=== PATIENT | male | born 1970 | race American Indian/Alaskan Native ===

== ENCOUNTER 2019-12-26 15:49 | Emergency (ER) | payer SELFPAY ==
[~2019-12-26] VITALS: Ht 185.4 cm; Wt 90.9 kg
[2019-12-26] MEDS ORDERED: IBUP200C25 PO (16:02)
[2019-12-26] MEDS ORDERED: KETOROLAC 30 MG/ML 1ML VIAL IV ONE (16:30)
[2019-12-26 16:52] LABS: BASO % 0.2 % (0.0-1.0); EOS % 0.5 % (0.0-3.0); HEMATOCRIT 40.8 % (42.0-52.0); HEMOGLOBIN 13.9 g/dl (13.5-17.5); LYMPH # 3.3 10^3/uL (1.5-5.0); LYMPH % 37.5 % (24.0-44.0); MEAN CORPUSCULAR HEMOGLOBIN 32.3 pg (27.0-33.0); MEAN CORPUSCULAR HGB CONC 34.1 g/dl (32.0-36.5); MEAN CORPUSCULAR VOLUME 94.7 fl (80.0-96.0); MONO # 0.5 10^3/uL (0.0-0.8); MONO % 5.9 % (0.0-5.0); NEUTROPHILS # 4.9 10^3/uL (1.5-8.5); NEUTROPHILS % 55.7 % (36.0-66.0); PLATELET COUNT, AUTOMATED 318 10^3/uL (150-450); RED BLOOD COUNT 4.31 10^6/uL (4.30-6.10); WHITE BLOOD COUNT 8.7 10^3/uL (4.0-10.0)
[2019-12-26] MEDS ORDERED: KETO10TAB PO (18:09)
[2019-12-26 18:19] VITALS: BP 134/75
[2019-12-26 19:22] LABS: CHLAMYDIA DNA AMPLIFICATION NEGATIVE (NEGATIVE); GC DNA AMPLIFICATION NEGATIVE (NEGATIVE)
--- NOTE | 2019-12-27 00:10 | REP ---
CT ABDOMEN AND PELVIS WITHOUT ORAL OR IV CONTRAST: CT abdomen and pelvis performed without oral or IV contrast. Sagittal and coronal reconstruction images are performed. Visualized lung bases demonstrate no infiltrate. The liver, gallbladder, spleen, adrenals, pancreas, and kidneys are grossly unremarkable. No renal, ureteral, or bladder calculus is seen, and there is no hydroureteronephrosis. There is mild atherosclerotic calcification of the abdominal aorta without aneurysm. I see no adenopathy. There is no free air or free fluid. There is no bowel wall thickening. The appendix is normal. No pelvic mass is seen. The urinary bladder is not well distended and not well evaluated. IMPRESSION: No CT evidence of renal, ureteral, or bladder calculus. No hydroureteronephrosis. Appendix is normal. No free air, free fluid, or bowel obstruction. Electronically Signed by Adalberto Waite MD 12/27/2019 01:28 P
== END 2019-12-26 18:23 | disposition home or self-care (01) ==
LOC: M ED 15:49
DX: R10.31 Right lower quadrant pain (principal)
CPT/HCPCS: 74176; 80047; 81001; 85025; 87661; 96374; 99284; J1885

== ENCOUNTER 2020-03-10 22:44 | Emergency (ER) | payer SELFPAY ==
[~2020-03-10] VITALS: Ht 188 cm; Wt 100.0 kg
[~2020-03-10 22:44] MED LIST: IBUP200C25 PO; KETO10TAB PO
[2020-03-11] MEDS ORDERED: NS 1,000 ML IV ONE (00:30)
[2020-03-11 00:33] LABS: BASO # 0.1 10^3/uL (0.0-0.2); BASO % 0.3 % (0.0-1.0); EOS # 0.2 10^3/uL (0.0-0.5); EOS % 0.8 % (0.0-3.0); HEMATOCRIT 44.7 % (42.0-52.0); HEMOGLOBIN 15.6 g/dl (13.5-17.5); LYMPH # 5.5 10^3/uL (1.5-5.0); LYMPH % 28.7 % (24.0-44.0); MEAN CORPUSCULAR HEMOGLOBIN 33.8 pg (27.0-33.0); MEAN CORPUSCULAR HGB CONC 34.9 g/dl (32.0-36.5); MONO # 0.9 10^3/uL (0.0-0.8); MONO % 4.6 % (0.0-5.0); NEUTROPHILS # 12.4 10^3/uL (1.5-8.5); NEUTROPHILS % 65.3 % (36.0-66.0); PLATELET COUNT, AUTOMATED 391 10^3/uL (150-450); RED BLOOD COUNT 4.61 10^6/uL (4.30-6.10)
--- NOTE | 2020-03-11 00:47 | REPVR ---
PROCEDURE INFORMATION: Exam: CT Abdomen And Pelvis Without Contrast Exam date and time: 03/11/2020 12:22 AM Age: 49 years old Clinical indication: Abdominal pain; Localized; Left upper quadrant (luq); Additional info: Luq abd pain TECHNIQUE: Imaging protocol: Computed tomography of the abdomen and pelvis without contrast. Radiation optimization: All CT scans at this facility use at least one of these dose optimization techniques: automated exposure control; mA and/or kV adjustment per patient size (includes targeted exams where dose is matched to clinical indication); or iterative reconstruction. COMPARISON: CT ABD PELVIS W/O CONTRAST 12/26/2019 4:23 PM FINDINGS: Liver: Normal. No mass. Gallbladder and bile ducts: Normal. No calcified stones. No ductal dilation. Pancreas: Normal. No ductal dilation. Spleen: Normal. No splenomegaly. Adrenals: Normal. No mass. Kidneys and ureters: Normal. No hydronephrosis. Stomach and bowel: Moderate stool in the colon. No abnormal bowel dilatation. Diffuse mild thickening of the colon. Negative for colonic diverticulitis. Appendix: Appendix is normal. Intraperitoneal space: Unremarkable. No free air. No significant fluid collection. Vasculature: Moderate calcified atherosclerotic disease. Multiple phleboliths in the pelvis. No aortic aneurysm. Lymph nodes: Unremarkable. No enlarged lymph nodes. Bladder: Unremarkable as visualized. Reproductive: Prostate is normal in size. Bones/joints: Moderate degenerative spine. No acute fracture. Soft tissues: Unremarkable. IMPRESSION: 1. Diffuse mild thickening of the colon. Suspicious for infectious or inflammatory colitis. 2. Additional findings as described. Electronically signed by: Buddy Falcon On 03/11/2020 00:47:28 AM
[2020-03-11 01:00] LABS: ALBUMIN 4.5 GM/DL (3.2-5.2); ALT/SGPT 19 U/L (12-78); BILIRUBIN,DIRECT < 0.1 MG/DL (0.0-0.2); BILIRUBIN,TOTAL 0.2 MG/DL (0.2-1.0); BLOOD UREA NITROGEN 8 MG/DL (7-18); CALCIUM LEVEL 8.8 MG/DL (8.5-10.1); CARBON DIOXIDE LEVEL 22 MEQ/L (21-32); CHLORIDE LEVEL 114 MEQ/L (98-107); CK-MB VALUE MASS 4.7 NG/ML (<3.6); CPK CREATINE PHOSPHOKINASE 180 U/L (39-308); CREATININE FOR GFR 0.97 MG/DL (0.70-1.30); GLOMERULAR FILTRATION RATE > 60.0 (>60); GLUCOSE, FASTING 93 MG/DL (70-100); LIPASE 111 U/L (73-393); MB/CK RELATIVE INDEX 2.61 (< OR =4); SODIUM LEVEL 146 MEQ/L (136-145); TROPONIN I < 0.02 NG/ML (< 0.10)
[2020-03-11] MEDS ORDERED: CIPROFLOXACIN 500MG TABLET PO ONE (01:15)
[2020-03-11] MEDS ORDERED: metroNIDAZOLE (FLAGYL) 500MG TABLET PO ONE (01:15)
[2020-03-11] MEDS ORDERED: FLAG500T PO (01:46)
[2020-03-11] MEDS ORDERED: ZOFR4TAB16 PO (01:46)
[2020-03-11] MEDS ORDERED: CIPR-249 PO (01:46)
[2020-03-11 02:15] VITALS: BP 127/79
--- NOTE | 2020-03-31 14:42 | ECGEPIP ---
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
--- NOTE | 2020-04-10 10:44 | REP ---
CHEST X-RAY CLINICAL: Shortness of breath. TECHNIQUE: PA and lateral. FINDINGS: Mediastinum and cardiac silhouette normal. Lung loredo are relatively clear. Linear fibroatelectic changes at the base are noted. No consolidation, effusions, or pneumothorax. Skeletal structures intact. IMPRESSION: Relatively normal examination as above. No focal consolidation or effusion. MTDD
== END 2020-03-11 02:20 | disposition home or self-care (01) ==
LOC: M ED 22:44
DX: R13.10 Dysphagia, unspecified (principal); R11.10 Vomiting, unspecified; K52.9 Noninfective gastroenteritis and colitis, unspecified; F17.200 Nicotine dependence, unspecified, uncomplicated

== ENCOUNTER 2020-06-27 15:53 | Emergency (ER) | payer SELFPAY ==
[~2020-06-27] VITALS: Ht 185.4 cm; Wt 90.3 kg
[2020-06-27 15:53] VITALS: BP 128/68
[~2020-06-27 15:53] MED LIST changes: +CIPR-249 PO; +FLAG500T PO; +ZOFR4TAB16 PO
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
--- NOTE | 2020-06-30 19:44 | ED PDOC ---
Post-Departure Follow-Up dr hernandez faxed formal report of soft tissue neck for fu Len Christianson MD Jun 30, 2020 19:44
== END 2020-06-27 17:21 | disposition home or self-care (01) ==
LOC: M ED 15:53
DX: S11.94XA Puncture wound with foreign body of unspecified part of neck, initial encounter (principal); X95.01XA Assault by airgun discharge, initial encounter; Y92.89 Other specified places as the place of occurrence of the external cause; Y93.89 Activity, other specified; Y99.8 Other external cause status; J02.9 Acute pharyngitis, unspecified; R42 Dizziness and giddiness; R06.02 Shortness of breath; F17.200 Nicotine dependence, unspecified, uncomplicated

== ENCOUNTER 2020-12-28 02:06 | Emergency (ER) | payer MEDICAID, SELFPAY ==
[~2020-12-28] VITALS: Ht 185.4 cm; Wt 100.0 kg
[2020-12-28] MEDS ORDERED: LORazepam 2 MG/ML VIAL IM STA (02:35)
[2020-12-28] MEDS ORDERED: diphenhydrAMINE 50MG/ML VIAL (J1200) IM STA (02:35)
[2020-12-28] MEDS ORDERED: HALOPERIDOL 5MG/ML VIAL (J1630 PER 1) IM STA (02:36)
[2020-12-28 02:41] LABS: HEMOGLOBIN 14.4 g/dl (13.5-17.5); MEAN CORPUSCULAR HEMOGLOBIN 32.7 pg (27.0-33.0); PLATELET COUNT, AUTOMATED 411 10^3/uL (150-450); RED BLOOD COUNT 4.41 10^6/uL (4.30-6.10); WHITE BLOOD COUNT 20.9 10^3/uL (4.0-10.0)
[2020-12-28 03:02] LABS: AMPHETAMINES LEVEL URINE NEGATIVE (NEGATIVE); BARBITURATES URINE NEGATIVE (NEGATIVE); BENZODIAZEPINES URINE NEGATIVE (NEGATIVE); CANNABINOIDS URINE POSITIVE (NEGATIVE); COCAINE METABOLITE URINE NEGATIVE (NEGATIVE); METHADONE URINE NEGATIVE (NEGATIVE); OPIATES URINE NEGATIVE (NEGATIVE); PHENCYCLIDINE URINE NEGATIVE (NEGATIVE)
[2020-12-28 03:09] LABS: ACETAMINOPHEN LEVEL < 2.0 UG/ML (10.0-30.0); ALBUMIN 4.6 GM/DL (3.2-5.2); ALT/SGPT 24 U/L (12-78); BILIRUBIN,DIRECT 0.1 MG/DL (0.0-0.2); BILIRUBIN,TOTAL 0.3 MG/DL (0.2-1.0); BLOOD UREA NITROGEN 11 MG/DL (7-18); CALCIUM LEVEL 9.1 MG/DL (8.5-10.1); CARBON DIOXIDE LEVEL 18 MEQ/L (21-32); CHLORIDE LEVEL 109 MEQ/L (98-107); CREATININE FOR GFR 1.15 MG/DL (0.70-1.30); ETHYL ALCOHOL (ETHANOL) 0.126 % (0.000-0.010); GLOMERULAR FILTRATION RATE > 60.0 (>56); GLUCOSE, FASTING 135 MG/DL (70-100); POTASSIUM SERUM 3.6 MEQ/L (3.5-5.1); SALICYLATE LEVEL 6.3 MG/DL (5.0-30.0); SODIUM LEVEL 146 MEQ/L (136-145); TOTAL PROTEIN 8.1 GM/DL (6.4-8.2)
[2020-12-28 04:35] VITALS: BP 125/60
--- NOTE | 2020-12-28 12:34 | REP ---
INDICATION: injury, pain. COMPARISON: None. TECHNIQUE: Three views of the left shoulder are presented. FINDINGS: Left glenohumeral and acromioclavicular joints are normally aligned. Periarticular soft tissues are unremarkable. No fracture or subluxation is seen. The visualized left hemithorax appears intact. There is an opaque BB superimposed on the 1st thoracic vertebral body. This was previously observed radiographically on June 27, 2020 soft tissue neck radiographs. It is apparently in the anterior soft tissues at the level of the upper trachea. IMPRESSION: Negative left shoulder radiographs. Opaque BB foreign body projecting over the T1 vertebral body. <Electronically signed by Sly Lopez > 12/28/20 2218
--- NOTE | 2020-12-28 12:35 | REP ---
INDICATION: injury, pain, including hand. COMPARISON: None. TECHNIQUE: Four views of the right wrist are provided. FINDINGS: Four views of the right wrist demonstrate overall normal mineralization. Joint spaces are preserved. No fracture or subluxation is seen. Alignment is normal. IMPRESSION: Negative radiographs of the right wrist. No fracture seen. <Electronically signed by Sly Lopez > 12/28/20 [id number]
[2020-12-28] MEDS ORDERED: THERTAB52 PO (20:30)
== END 2020-12-28 14:36 | disposition home or self-care (01) ==
LOC: M ED 02:06
DX: F10.229 Alcohol dependence with intoxication, unspecified (principal); Y90.0 Blood alcohol level of less than 20 mg/100 ml
CPT/HCPCS: 36415; 73030; 73110; 80048; 80076; 80143; 80307; 82077; 84443; 85027; 96372; 99285; J1200; J1630; J2060

== ENCOUNTER 2020-12-28 18:47 | Inpatient (IN) | payer MEDICAID, SELFPAY ==
[~2020-12-28] VITALS: Ht 185.4 cm; Wt 100.0 kg
[2020-12-28 19:21] LABS: HEMOGLOBIN 13.5 g/dl (13.5-17.5); MEAN CORPUSCULAR HEMOGLOBIN 32.7 pg (27.0-33.0); MEAN CORPUSCULAR HGB CONC 32.9 g/dl (32.0-36.5); MEAN CORPUSCULAR VOLUME 99.3 fl (80.0-96.0); PLATELET COUNT, AUTOMATED 358 10^3/uL (150-450); RED BLOOD COUNT 4.13 10^6/uL (4.30-6.10); WHITE BLOOD COUNT 17.2 10^3/uL (4.0-10.0)
[2020-12-28 19:44] LABS: AMPHETAMINES LEVEL URINE NEGATIVE (NEGATIVE); BARBITURATES URINE NEGATIVE (NEGATIVE); BENZODIAZEPINES URINE NEGATIVE (NEGATIVE); CANNABINOIDS URINE POSITIVE (NEGATIVE); COCAINE METABOLITE URINE NEGATIVE (NEGATIVE); METHADONE URINE NEGATIVE (NEGATIVE); OPIATES URINE NEGATIVE (NEGATIVE); PHENCYCLIDINE URINE NEGATIVE (NEGATIVE)
[2020-12-28 20:01] LABS: ACETAMINOPHEN LEVEL < 2.0 UG/ML (10.0-30.0); ALBUMIN 4.3 GM/DL (3.2-5.2); ALT/SGPT 31 U/L (12-78); BILIRUBIN,DIRECT 0.2 MG/DL (0.0-0.2); BILIRUBIN,TOTAL 0.7 MG/DL (0.2-1.0); BLOOD UREA NITROGEN 15 MG/DL (7-18); CALCIUM LEVEL 9.3 MG/DL (8.5-10.1); CARBON DIOXIDE LEVEL 24 MEQ/L (21-32); CHLORIDE LEVEL 111 MEQ/L (98-107); CREATININE FOR GFR 0.97 MG/DL (0.70-1.30); ETHYL ALCOHOL (ETHANOL) 0.013 % (0.000-0.010); GLOMERULAR FILTRATION RATE > 60.0 (>56); GLUCOSE, FASTING 102 MG/DL (70-100); POTASSIUM SERUM 4.2 MEQ/L (3.5-5.1); SALICYLATE LEVEL 4.7 MG/DL (5.0-30.0); SODIUM LEVEL 146 MEQ/L (136-145); TOTAL PROTEIN 7.5 GM/DL (6.4-8.2)
[2020-12-28] MEDS ORDERED: THERTAB52 PO (20:30)
[2020-12-29] MEDS ORDERED: LORazepam 2 MG TAB PO PRN (11:20)
[2020-12-29] MEDS ORDERED: MOM 30ML SUSPENSION UDC PO PRN (11:20)
[2020-12-29] MEDS ORDERED: MAALOX 30 ML SUSP *UDC PO PRN (11:20)
[2020-12-29] MEDS ORDERED: ACETAMINOPHEN TAB 650MG DOSE (2X325MG) PO PRN (11:20)
[2020-12-29 11:23] LABS: RSV AMPLIFICATION NEGATIVE (NEGATIVE)
[2020-12-29] MEDS ORDERED: IBUPROFEN 800 MG TAB PO ONE (11:35)
[2020-12-29 13:27] VITALS: BP 128/86
[2020-12-29 14:00] VITALS: BP 128/86
[2020-12-29] MEDS ORDERED: IBUPROFEN 600MG TAB PO PRN (14:55)
[2020-12-29] MEDS: MULTIVITAMINS/MINERALS THERAP 1 TAB PO SCH (15:22)
[2020-12-29] MEDS: THIAMINE 100 MG TAB PO SCH ×2 (15:22→20:22)
[2020-12-29] MEDS: FOLIC ACID 1 MG TAB PO SCH (15:22)
[2020-12-29] MEDS: traZODone 50 MG TAB PO PRN (20:22)
[2020-12-30 02:09] VITALS: BP 150/79
[2020-12-30] MEDS: IBUPROFEN 600MG TAB PO PRN ×2 (06:23→15:53)
[2020-12-30 06:36] VITALS: BP 142/77
[2020-12-30 06:37] VITALS: BP 142/77
[2020-12-30] MEDS: THIAMINE 100 MG TAB PO SCH ×2 (09:46→20:17)
[2020-12-30] MEDS: MULTIVITAMINS/MINERALS THERAP 1 TAB PO SCH (09:46)
[2020-12-30] MEDS: FOLIC ACID 1 MG TAB PO SCH (09:46)
[2020-12-30] MEDS: NICOTINE 21MG/24HR 1 EA TRANSDERMAL TD SCH (09:47)
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
[2020-12-30] MEDS ORDERED: ISOVUE-370 76% 100ML VIAL As Ordered ONE (15:06)
[2020-12-30 15:34] VITALS: BP 168/86
[2020-12-30] MEDS ORDERED: ACETAMINOPHEN TAB 650MG DOSE (2X325MG) PO PRN (16:30)
[2020-12-30 16:36] VITALS: BP 168/86
[2020-12-30] MEDS: MIRTAZAPINE 7.5MG PER 1/2 TABLET PO SCH (20:17)
[2020-12-30] MEDS: hydrOXYzine 50 MG TAB PO SCH (20:17)
--- NOTE | 2020-12-30 22:13 | HPEPDOC ---
[facility] Medical History & Physical Date of Admission Dec 29, 2020 Date of Service: Dec 30, 2020 History and Physical CHIEF COMPLAINT: Bilateral knee pain HISTORY OF PRESENT ILLNESS: Mr. Ospina is a 50 year old male in the inpatient mental health unit for suicide ideation. He tells me he recently hyperextended his knee. He was upset at the neighbors and was stomping and jumping on the ground. He landed wrong and hyperextended his knees bilaterally. He tells me at rest he has 6 out of 10 pain. Pain is worse with ambulation. He limps due to this pain. On passive range of motion of his legs, pain is worse on right than left. Attempted Amy's maneuver, but was unable to due to pain. Otherwise patient reports abdominal pain intermittently. Sometimes when he strains, he has pus coming out of his penis. He tells me that he's had abscess/fistula in his colon. Patient has not followed with the primary for several years. PAST MEDICAL HISTORY: Patient denies any past medical history PAST SURGICAL HISTORY: 1. Abdominal surgeries for abscess/fistula SOCIAL HISTORY: Tobacco use: Current smoker. Tells me he started when he was 9 years old. Smoked for 42 years, about 1-2 packs per day. ETOH: Occasionally Illicit drug use: Marijuana FAMILY HISTORY: Father: Heart problems Mother: History of unknown cancer, [place] ALLERGIES: Please see below. REVIEW OF SYSTEMS: CONSTITUTIONAL: Denies any fever. ENT: Reports sore throat from yelling. RESPIRATORY: Reports chronic shortness of breath. Reports chronic cough with yellow sputum. CARDIOVASCULAR: Denies chest pain. GASTROINTESTINAL: Reports intermittent abdominal pain. GENITOURINARY: Denies dysuria. CUTANEOUS: Denies rashes. MUSCULOSKELETAL: Reports bilateral knee pain. NEUROLOGICAL: Denies paresthesias. PSYCHOLOGICAL: Reports anxiety. Reports depression. HOME MEDICATIONS: Please see below. PHYSICAL EXAMINATION: VITAL SIGNS: Temperature 98.5, pulse 88, respiratory rate 18, blood pressure 168/86, pulse oximetry 95% on room air. GENERAL: Comfortable, in no apparent distress. HEENT: Head normocephalic/atraumatic, EOMI, sclera clear. NECK: Supple, no JVD. RESPIRATORY: Lungs clear to auscultation bilaterally, no rales, wheeze or rhonchi. CARDIOVASCULAR: Regular rate and rhythm. ABDOMEN: Soft, nontender, no guarding or rebound tenderness. Normal bowel sounds. MUSCLE SKELETAL: Bilateral knee pain with passive range of motion. Restriction in range of motion due to pain. NEUROLOGICAL: CN 312 grossly intact, no focal deficits noted. PSYCHOLOGICAL: Normal mood and affect LABORATORY DATA: See below. IMAGING: None MICROBIOLOGY: Please see below. ASSESSMENT and PLAN: 1. Bilateral knee pain Ordered CT of the knees bilaterally Acetaminophen and ibuprofen for pain May ice knees Recommend rest 2. Abdominal pain Patient tells me has a history of fistulas and abscesses We'll order a CT abdomen and pelvis contrast 3. Suicidal ideation Being managed in the inpatient mental health unit Vital Signs Vital Signs Date Time Temp Pulse Resp B/P (MAP) Pulse Ox O2 Delivery O2 Flow Rate FiO2 12/30/20 16:36 98.5 88 18 168/86 (113) 12/30/20 08:44 Room Air 12/30/20 06:36 95 Home Medications Scheduled Multivitamin,Therapeutic (Thera-Tabs) 1 Each Tablet, 1 TAB PO DAILY Allergies Coded Allergies: No Known Allergies (Unverified , 12/26/19) A-FIB/CHADSVASC A-FIB History Current/History of A-Fib/PAF?: No JACY JUAREZ DO Dec 30, 2020 22:13
[2020-12-31 00:15] VITALS: BP 162/75
[2020-12-31 06:20] VITALS: BP 158/78
--- NOTE | 2020-12-31 07:00 | REP ---
INDICATION: Abdominal pain, history of abscess/fistula, colovesicular?. COMPARISON: 03/11/2020 TECHNIQUE: Axial contrast-enhanced images from the lung bases to the pubic symphysis using 100 cc Isovue 370 intravenous contrast material. Coronal and sagittal reformations obtained. This CT examination was performed using the following dose reduction techniques: Automated exposure control, adjustment of mA and/or kv according to the patient's size, and the use of iterative reconstruction technique. FINDINGS: Liver, spleen, pancreas, gallbladder, bilateral adrenal glands and kidneys are normal. The enteric system including stomach, small, and large bowel appears normal. No evidence for obstruction or acute inflammatory process. Normal terminal ileum and appendix are identified in the right lower quadrant. Few scattered sigmoid diverticula without acute diverticulitis noted. Pelvis demonstrates normal bladder and age-appropriate prostate/seminal vesicles. No ascites. No free air. No intraperitoneal or retroperitoneal adenopathy. Abdominal aorta and vasculature appear normal. Musculoskeletal structures are intact and without acute osseous abnormality. IMPRESSION: No acute abdominopelvic pathology appreciated. <Electronically signed by Dharmesh Ley > 12/31/20 [id number]
[2020-12-31] MEDS: IBUPROFEN 600MG TAB PO PRN ×2 (07:11→18:14)
--- NOTE | 2020-12-31 07:17 | REP ---
INDICATION: Bilaterla knee pain. COMPARISON: None. TECHNIQUE: Axial contrast-enhanced images through the bilateral knees using 100 cc Isovue 370 intravenous contrast material (delayed from abdominopelvic CT). Coronal and sagittal reformations obtained. FINDINGS: Examination is relatively symmetric and essentially within normal limits. Age-related tricompartmental changes include subtle periarticular sclerosis with very minimal tibiofemoral and patellofemoral joint space narrowing. No osteophytosis or subchondral erosive changes/irregularities are noted. No effusion. Musculature and soft tissue supporting structures appear relatively symmetric and normal by CT evaluation. Surrounding subcutaneous fat is without edema or stranding. IMPRESSION: Minimal symmetric age-related changes. <Electronically signed by Dharmesh Ley > 12/31/20 [id number]
[2020-12-31 08:00] VITALS: BP 158/78
[2020-12-31] MEDS: hydrOXYzine 50 MG TAB PO SCH (08:15)
[2020-12-31] MEDS: NICOTINE 21MG/24HR 1 EA TRANSDERMAL TD SCH (08:15)
[2020-12-31] MEDS: MULTIVITAMINS/MINERALS THERAP 1 TAB PO SCH (08:15)
[2020-12-31] MEDS: THIAMINE 100 MG TAB PO SCH (08:15)
[2020-12-31] MEDS: FOLIC ACID 1 MG TAB PO SCH (08:16)
--- NOTE | 2020-12-31 14:12 | MHIPNPDOC ---
[facility] Progress Note Progress Note DATE OF SERVICE: 12/31/20 HISTORY: Patient is a 50 year old Single, Unemployed, Undomiciled, Male who reports that he had suicidal thinking after his nephew and him were arguing and his nephew threw him out of the house where he had been residing x 3 years. "I had problems with my neighbors. We got argument about change being off the door. They called the police and he was sitting in the ER for 12 hours and last to walking barefoot after he was discharged was not allowed to get things nowhere to go, no money, and I was thinking about jumping off a bridge". Patient reports a long history of legal problems, is sex offender , was in detention for 3 years. Reports that his stepdaughter accused him of sex offense, has been living off and on with family members for many years because he is unable to obtain a job due to his sexual offense status. "This is the fourth time everything has been taken away from me" PER ED REPORT: Pt was brought to the ED by [employer] on a 9.41 after pt. wandered into the [facility] [employer]. stating he was suicidal with plan to jump off a bridge or jump in front of a bus. Pt was recently discharged from ED a few hours ago and stated he lied to medical social worker in attempt to be discharged. Pt states, "I was walking around [place] with no shoes and I realized I've never been this low in my entire life." States he was seen in the ED and evaluated a few hours ago, but was not truthful to the medical social worker. Please refer to MHE from previous visit, but now states he is homeless and is not willing to stay in a [facility] hotel. He admits he walked into the Fire Dept. and expressed SI with plan to jump off a bridge or jump in front of a bus. States he's had 2 previous suicide attempts in the past by OD by pills in 2003 and 2009 while he was living in [place]. VITAL SIGNS: See below. CURRENT MEDICATIONS: See below. MENTAL STATUS EXAMINATION: Patient is a 50 year old Single, Unemployed, Undomiciled, Male who reports that he had suicidal thinking after his nephew and him were arguing and his nephew threw him out of the house where he had been residing x 3 years. "I had problems with my neighbors. We got argument about change being off the door. Speech: Is fluid, conversant, normal rate, tone and volume Language skills are intact Thought processes including: linear and goal oriented Thought content: denies depression and anxiety. Denies suicidal/homicidal ideation, planning or intent. Abstract reasoning, and computation: fair Description of associations: denies, none observed Description of abnormal or psychotic thoughts: denies, none observed. Judgment: fair Insight: fair Orientation: alert and oriented to person, place, time and situation Recent and remote memory: intact Attention span and concentration: good Language: expansive Fund of knowledge: average Mood: Euthymic Mood Affect: reactive DIAGNOSES: Adjustment Disorder with mixed disturbances of Emotion and Conduct. Alcohol Use Disorder Alcohol-induced depressive disorder Alcohol Intoxication Cannabis Use Disorder ASSESSMENT: Patient states that he he doing well. Had CT scan and waiting to have MRI done. He has been seen by financial aid administrator to sign him up for Medicaid. States that he will go to [facility] on Tuesday to get emergency housing and will sign up for other services that he may qualify for. He denies depression and anxiety, has not had suicidal ideation in the past 24 hours. MANAGEMENT PLAN: Patient is compliant with medications, continue all medications as ordered. Discharge on Tuesday to [facility] for emergency housing TIME SPENT: 25 minutes. Vital Signs Vital Signs Date Time Temp Pulse Resp B/P (MAP) Pulse Ox O2 Delivery O2 Flow Rate FiO2 12/31/20 08:23 Room Air 12/31/20 08:00 78 158/78 12/31/20 06:20 98.4 20 97 Current Medications Current Medications Medications (Trade) Dose Ordered Sig/Barber Route PRN Reason Start Time Stop Time Status Last Admin Dose Admin Acetaminophen (Tylenol Tab) 650 mg Q6HP PRN PO HEADACHE or DISCOMFORT 12/29/20 11:20 Cancel Acetaminophen (Tylenol Tab) 650 mg Q6HP PRN PO PAIN / FEVER 12/30/20 16:30 Al Hydrox/Mg Hydrox/Simethicone (Mylanta) 30 ml Q4HP PRN PO HEARTBURN/INDIGESTION 12/29/20 11:20 Folic Acid (Folic Acid) 1 mg DAILY PO 12/29/20 09:00 12/31/20 08:16 Home Med (Med Rec Complete!) ASDIRECTED XX 12/28/20 20:30 12/28/20 20:39 DC Hydroxyzine HCl (Atarax) 50 mg BID PO 12/30/20 21:00 12/31/20 10:41 DC 12/31/20 08:15 Hydroxyzine HCl (Atarax) 50 mg Q6HP PRN PO ANXIETY 12/30/20 14:20 Ibuprofen (Advil) 600 mg Q6HP PRN PO MODERATE PAIN (PS 5-7) 12/29/20 14:55 12/29/20 14:56 DC Ibuprofen (Advil) 600 mg Q6HP PRN PO MODERATE PAIN (PS 5-7) 12/29/20 18:00 12/31/20 07:11 Lorazepam (Ativan) 2 mg ASDIRECTED PRN PO SEE PROTOCOL 12/29/20 11:20 Magnesium Hydroxide (Milk Of Magnesia) 30 ml DAILYPRN PRN PO CONSTIPATION 12/29/20 11:20 Mirtazapine (Remeron) 7.5 mg QHS PO 12/30/20 21:00 12/30/20 20:17 Multivitamins (Theragram-M) 1 tab DAILY PO 12/29/20 09:00 12/31/20 08:15 Nicotine (Nicoderm Cq 21mg) 1 patch DAILY TD 12/30/20 09:00 12/31/20 08:15 Thiamine HCl (Thiamine HCl) 100 mg BID PO 12/29/20 09:00 01/01/21 08:59 12/31/20 08:15 Trazodone HCl (Desyrel) 50 mg QHSP PRN PO INSOMNIA 12/29/20 11:20 12/29/20 20:22 Allergies Coded Allergies: No Known Allergies (Unverified , 12/26/19) EVELYN KONG NP Dec 31, 2020 13:57
[2020-12-31 15:22] VITALS: BP 142/87
[2020-12-31 15:54] VITALS: BP 142/87
[2020-12-31] MEDS: MIRTAZAPINE 7.5MG PER 1/2 TABLET PO SCH (20:10)
[2020-12-31] MEDS: hydrOXYzine 50 MG TAB PO PRN (20:10)
[2021-01-01 05:54] VITALS: BP 138/78
[2021-01-01] MEDS: IBUPROFEN 600MG TAB PO PRN ×2 (06:20→12:20)
[2021-01-01] MEDS: hydrOXYzine 50 MG TAB PO PRN ×2 (08:08→20:25)
[2021-01-01] MEDS: FOLIC ACID 1 MG TAB PO SCH (08:08)
[2021-01-01] MEDS: NICOTINE 21MG/24HR 1 EA TRANSDERMAL TD SCH (08:08)
[2021-01-01] MEDS: MULTIVITAMINS/MINERALS THERAP 1 TAB PO SCH (08:08)
--- NOTE | 2021-01-01 13:36 | MHIPNPDOC ---
[facility] Progress Note Progress Note DATE OF SERVICE: 01/01/21 HISTORY: Patient is a 50 year old Single, Unemployed, Undomiciled, Male who reports that he had suicidal thinking after his nephew and him were arguing and his nephew threw him out of the house where he had been residing x 3 years. "I had problems with my neighbors. We got argument about change being off the door. They called the police and he was sitting in the ER for 12 hours and last to walking barefoot after he was discharged was not allowed to get things nowhere to go, no money, and I was thinking about jumping off a bridge". Patient reports a long history of legal problems, is sex offender , was in nursing home for 3 years. Reports that his stepdaughter accused him of sex offense, has been living off and on with family members for many years because he is unable to obtain a job due to his sexual offense status. "This is the fourth time everything has been taken away from me" PER ED REPORT: Pt was brought to the ED by [facility] on a 9.41 after pt. wandered into the [facility] [employer]. stating he was suicidal with plan to jump off a bridge or jump in front of a bus. Pt was recently discharged from ED a few hours ago and stated he lied to social work lecturer in attempt to be discharged. Pt states, "I was walking around [place] with no shoes and I realized I've never been this low in my entire life." States he was seen in the ED and evaluated a few hours ago, but was not truthful to the social work lecturer. Please refer to MHE from previous visit, but now states he is homeless and is not willing to stay in a [facility] hotel. He admits he walked into the Fire Dept. and expressed SI with plan to jump off a bridge or jump in front of a bus. States he's had 2 previous suicide attempts in the past by OD by pills in 2003 and 2009 while he was living in [place]. VITAL SIGNS: See below. CURRENT MEDICATIONS: See below. MENTAL STATUS EXAMINATION: Patient is a 50 year old Single, Unemployed, Undomiciled, Male who reports that he had suicidal thinking after his nephew and him were arguing and his nephew threw him out of the house where he had been residing x 3 years. "I had problems with my neighbors. We got argument about change being off the door. Speech: Is fluid, conversant, normal rate, tone and volume Language skills are intact Thought processes including: linear and goal oriented Thought content: denies depression and anxiety. Denies suicidal/homicidal ideation, planning or intent. Abstract reasoning, and computation: fair Description of associations: denies, none observed Description of abnormal or psychotic thoughts: denies, none observed. Judgment: good Insight: good Orientation: alert and oriented to person, place, time and situation Recent and remote memory: intact Attention span and concentration: good Language: expansive Fund of knowledge: average Mood: Euthymic Mood Affect: reactive DIAGNOSES: Adjustment Disorder with mixed disturbances of Emotion and Conduct. Alcohol Use Disorder Alcohol-induced depressive disorder Alcohol Intoxication Cannabis Use Disorder ASSESSMENT: Denies thoughts of self-harm. Denies depression and anxiety. Reports right knee pain, CT scan shows no abnormalities. He is scheduled for an MRI. Patient is somewhat isolative and withdrawn staying close to his room, but this may be due to complaint of another peer. He is future oriented and is ready for discharge tomorrow. MANAGEMENT PLAN: Patient is compliant with medications, continue all medications as ordered. Discharge tomorrow TIME SPENT: 25 minutes. Vital Signs Vital Signs Date Time Temp Pulse Resp B/P (MAP) Pulse Ox O2 Delivery O2 Flow Rate FiO2 01/01/21 07:45 Room Air 01/01/21 05:54 99.2 86 20 138/78 (98) 100 Current Medications Current Medications Medications (Trade) Dose Ordered Sig/Barber Route PRN Reason Start Time Stop Time Status Last Admin Dose Admin Acetaminophen (Tylenol Tab) 650 mg Q6HP PRN PO HEADACHE or DISCOMFORT 12/29/20 11:20 Cancel Acetaminophen (Tylenol Tab) 650 mg Q6HP PRN PO PAIN / FEVER 12/30/20 16:30 Al Hydrox/Mg Hydrox/Simethicone (Mylanta) 30 ml Q4HP PRN PO HEARTBURN/INDIGESTION 12/29/20 11:20 Folic Acid (Folic Acid) 1 mg DAILY PO 12/29/20 09:00 01/01/21 08:08 Home Med (Med Rec Complete!) ASDIRECTED XX 12/28/20 20:30 12/28/20 20:39 DC Hydroxyzine HCl (Atarax) 50 mg BID PO 12/30/20 21:00 12/31/20 10:41 DC 12/31/20 08:15 Hydroxyzine HCl (Atarax) 50 mg Q6HP PRN PO ANXIETY 12/30/20 14:20 01/01/21 08:08 Ibuprofen (Advil) 600 mg Q6HP PRN PO MODERATE PAIN (PS 5-7) 12/29/20 14:55 12/29/20 14:56 DC Ibuprofen (Advil) 600 mg Q6HP PRN PO MODERATE PAIN (PS 5-7) 12/29/20 18:00 01/01/21 12:20 Lorazepam (Ativan) 2 mg ASDIRECTED PRN PO SEE PROTOCOL 12/29/20 11:20 Cancel Magnesium Hydroxide (Milk Of Magnesia) 30 ml DAILYPRN PRN PO CONSTIPATION 12/29/20 11:20 Mirtazapine (Remeron) 7.5 mg QHS PO 12/30/20 21:00 12/31/20 20:10 Multivitamins (Theragram-M) 1 tab DAILY PO 12/29/20 09:00 01/01/21 08:08 Nicotine (Nicoderm Cq 21mg) 1 patch DAILY TD 12/30/20 09:00 01/01/21 08:08 Thiamine HCl (Thiamine HCl) 100 mg BID PO 12/29/20 09:00 12/31/20 19:36 DC 12/31/20 08:15 Trazodone HCl (Desyrel) 50 mg QHSP PRN PO INSOMNIA 12/29/20 11:20 12/29/20 20:22 Allergies Coded Allergies: No Known Allergies (Unverified , 12/26/19) EVELYN KONG NP Jan 01, 2021 13:35
[2021-01-01 17:41] VITALS: BP 139/80
[2021-01-01] MEDS: MIRTAZAPINE 7.5MG PER 1/2 TABLET PO SCH (20:25)
[2021-01-01] MEDS: traZODone 50 MG TAB PO PRN (20:25)
[2021-01-02 05:48] VITALS: BP 144/78
[2021-01-02] MEDS: IBUPROFEN 600MG TAB PO PRN ×3 (07:02→20:38)
[2021-01-02] MEDS ORDERED: NICO21PAT TD (08:29)
[2021-01-02] MEDS ORDERED: HYDR50TA70 PO (08:29)
[2021-01-02] MEDS ORDERED: MIRT-62 PO (08:29)
[2021-01-02] MEDS ORDERED: IBUP200C25 PO (08:29)
[2021-01-02] MEDS: hydrOXYzine 50 MG TAB PO PRN ×2 (08:40→20:38)
[2021-01-02] MEDS: MULTIVITAMINS/MINERALS THERAP 1 TAB PO SCH (08:40)
[2021-01-02] MEDS: NICOTINE 21MG/24HR 1 EA TRANSDERMAL TD SCH (08:40)
[2021-01-02] MEDS: FOLIC ACID 1 MG TAB PO SCH (08:40)
--- NOTE | 2021-01-02 08:58 | REP ---
INDICATION: Traumatic injury, concern for ligament/meniscus tear/injury. COMPARISON: CT 12/30/2020. TECHNIQUE: Multiple sequences obtained in the axial, coronal and sagittal planes. FINDINGS: Menisci: Intact, no tear. Cruciate ligaments: Intact. Collateral ligaments: Intact. Extensor mechanism/patellar retinacula: Intact. There is focal mild loculated fluid along the anterior aspect of the proximal tibia and distal patellar tendon, which may indicate bursitis at this location. Cartilage: Smooth, no osteochondral defect. Bone marrow: There is moderate marrow edema in the anterior aspect of the tibial plateau predominantly laterally consistent with a bone bruise. There is mild bone bruising of the anterior aspect of the medial femoral condyle. Joint fluid: There is a moderate joint effusion. Popliteal region: Tiny amount of fluid is seen in the medial popliteal fossa. There are findings compatible with a partial tear of the medial gastrocnemius tendon. IMPRESSION: Bone bruising of the tibial plateau and medial femoral condyle as discussed above. Moderate joint effusion. Partial tear medial gastrocnemius tendon. Focal mild loculated fluid along the anterior aspect of the distal patellar tendon may indicate bursitis at this location. A preliminary report was provided by [facility] at the time of the exam. <Electronically signed by Adalberto Waite > 01/02/21 2150
--- NOTE | 2021-01-02 09:08 | REP ---
INDICATION: Trauma, concern for tear/injury. Without contrast. COMPARISON: None. TECHNIQUE: Multiple sequences obtained in the axial, coronal and sagittal planes. FINDINGS: Menisci: There is an undersurface tear of the posterior horn of the medial meniscus. There is an adjacent bilobed 1.6 cm cyst at the central margin of the posterior horn of the medial meniscus. The lateral meniscus appears intact. Cruciate ligaments: There are findings compatible with a grade 1-2 sprain of the distal anterior cruciate ligament. Collateral ligaments: Intact. Extensor mechanism/patellar retinacula: Intact. Cartilage: There is mild global chondromalacia with no focal defect. Bone marrow: The findings compatible with bone bruising of the anterior aspect of the tibial plateau, as well as the anterior aspect of the medial femoral condyle. Joint fluid: There is a small joint effusion. Popliteal region: No cyst. There appears to be a mild strain of the tendon of the medial gastrocnemius. There is moderate diffuse edema throughout the posterior soft tissues with a tiny amount of scattered fluid in the fascial planes of this region. IMPRESSION: Undersurface tear posterior horn medial meniscus, with an adjacent bilobed 1.6 cm cyst along the central margin. Grade 1-2 sprain of distal anterior cruciate ligament. Bone bruising anterior aspect of the tibial plateau as well as the anterior aspect of the medial femoral condyle. Small joint effusion. Mild strain of the tendon of the medial gastrocnemius. A preliminary report was provided by [facility] at the time of the exam. <Electronically signed by Adalberto Waite > 01/02/21 0904
--- NOTE | 2021-01-02 13:48 | MHIPNPDOC ---
[facility] Progress Note Progress Note DATE OF SERVICE: 01/02/21 HISTORY: Patient is a 50 year old Single, Unemployed, Undomiciled, Male who reports that he had suicidal thinking after his nephew and him were arguing and his nephew threw him out of the house where he had been residing x 3 years. "I had problems with my neighbors. We got argument about change being off the door. They called the police and he was sitting in the ER for 12 hours and last to walking barefoot after he was discharged was not allowed to get things nowhere to go, no money, and I was thinking about jumping off a bridge". Patient reports a long history of legal problems, is sex offender , was in longterm for 3 years. Reports that his stepdaughter accused him of sex offense, has been living off and on with family members for many years because he is unable to obtain a job due to his sexual offense status. "This is the fourth time everything has been taken away from me" PER ED REPORT: Pt was brought to the ED by [facility] on a 9.41 after pt. wandered [place] [employer] stating he was suicidal with plan to jump off a bridge or jump in front of a bus. Pt was recently discharged from ED a few hours ago and stated he lied to high school social science teacher in attempt to be discharged. Pt states, "I was walking around [place] with no shoes and I realized I've never been this low in my entire life." States he was seen in the ED and evaluated a few hours ago, but was not truthful to the high school social science teacher. Please refer to MHE from previous visit, but now states he is homeless and is not willing to stay in a [facility] hotel. He admits he walked into the [employer] Dept. and expressed SI with plan to jump off a bridge or jump in front of a bus. States he's had 2 previous suicide attempts in the past by OD by pills in 2003 and 2009 while he was living in [place]. VITAL SIGNS: See below. CURRENT MEDICATIONS: See below. MENTAL STATUS EXAMINATION: Patient is a 50 year old Single, Unemployed, Undomiciled, Male who reports that he had suicidal thinking after his nephew and him were arguing and his nephew threw him out of the house where he had been residing x 3 years. "I had problems with my neighbors. We got argument about change being off the door. Speech: Is fluid, conversant, normal rate, tone and volume Language skills are intact Thought processes including: linear and goal oriented Thought content: denies depression and anxiety. Denies suicidal/homicidal ideation, planning or intent. Abstract reasoning, and computation: fair Description of associations: denies, none observed Description of abnormal or psychotic thoughts: denies, none observed. Judgment: good Insight: good Orientation: alert and oriented to person, place, time and situation Recent and remote memory: intact Attention span and concentration: good Language: expansive Fund of knowledge: average Mood: Irritable Mood Affect: reactive DIAGNOSES: Adjustment Disorder with mixed disturbances of Emotion and Conduct. Alcohol Use Disorder Alcohol-induced depressive disorder Alcohol Intoxication Cannabis Use Disorder ASSESSMENT: Denies thoughts of self-harm. Denies depression and anxiety. Reports right knee pain, CT scan shows no abnormalities. Patient is isolative and withdrawn staying close to his room, but cooperative. He is future oriented and was ready for discharge today but cannot leave. Due to Federal Holiday "" that was enacted into law all federal offices are closed today. Patient is unable to go to [facility] office for emergency housing. He is very irritable about this, he complains about his diet change (he requested his diet to be changed as he complained of being lactose intolerance) and he requested a regular diet today, he complains that he was not given correct food trays for 5 days, he complained about the holiday. States "this is basically been my whole life, a long line of disappointments and it is always targeted to me, everything is a big letdown!" It was reported that he was very agitated in the hallway and complained, but was apologetic after his rant. MANAGEMENT PLAN: Patient is compliant with medications, continue all medications as ordered. Discharge tomorrow TIME SPENT: 25 minutes. Vital Signs Vital Signs Date Time Temp Pulse Resp B/P (MAP) Pulse Ox O2 Delivery O2 Flow Rate FiO2 01/02/21 05:48 97.5 101 18 144/78 (100) 100 Room Air Current Medications Current Medications Medications (Trade) Dose Ordered Sig/Barber Route PRN Reason Start Time Stop Time Status Last Admin Dose Admin Acetaminophen (Tylenol Tab) 650 mg Q6HP PRN PO HEADACHE or DISCOMFORT 12/29/20 11:20 Cancel Acetaminophen (Tylenol Tab) 650 mg Q6HP PRN PO PAIN / FEVER 12/30/20 16:30 Al Hydrox/Mg Hydrox/Simethicone (Mylanta) 30 ml Q4HP PRN PO HEARTBURN/INDIGESTION 12/29/20 11:20 Folic Acid (Folic Acid) 1 mg DAILY PO 12/29/20 09:00 01/02/21 08:40 Home Med (Med Rec Complete!) ASDIRECTED XX 12/28/20 20:30 12/28/20 20:39 DC Hydroxyzine HCl (Atarax) 50 mg BID PO 12/30/20 21:00 12/31/20 10:41 DC 12/31/20 08:15 Hydroxyzine HCl (Atarax) 50 mg Q6HP PRN PO ANXIETY 12/30/20 14:20 01/02/21 08:40 Ibuprofen (Advil) 600 mg Q6HP PRN PO MODERATE PAIN (PS 5-7) 12/29/20 14:55 12/29/20 14:56 DC Ibuprofen (Advil) 600 mg Q6HP PRN PO MODERATE PAIN (PS 5-7) 12/29/20 18:00 01/02/21 13:02 Lorazepam (Ativan) 2 mg ASDIRECTED PRN PO SEE PROTOCOL 12/29/20 11:20 Cancel Magnesium Hydroxide (Milk Of Magnesia) 30 ml DAILYPRN PRN PO CONSTIPATION 12/29/20 11:20 Mirtazapine (Remeron) 7.5 mg QHS PO 12/30/20 21:00 01/01/21 20:25 Multivitamins (Theragram-M) 1 tab DAILY PO 12/29/20 09:00 01/02/21 08:40 Nicotine (Nicoderm Cq 21mg) 1 patch DAILY TD 12/30/20 09:00 01/02/21 08:40 Thiamine HCl (Thiamine HCl) 100 mg BID PO 12/29/20 09:00 12/31/20 19:36 DC 12/31/20 08:15 Trazodone HCl (Desyrel) 50 mg QHSP PRN PO INSOMNIA 12/29/20 11:20 01/01/21 20:25 Allergies Coded Allergies: No Known Allergies (Unverified , 12/26/19) EVELYN KONG FIELD REPORTER Jan 02, 2021 13:48
[2021-01-02 16:55] VITALS: BP 141/75
--- NOTE | 2021-01-02 18:59 | IPNPDOC ---
Subjective Date Seen The patient was seen on 01/02/21. Subjective Chief Complaint/HPI Today, Mr. Ospina looks like he is ambulating better, but still has a limp. Patient's CT knees was negative for fracture. Agosto finding in MRI left knee was tear of posterior horn of the medical meniscus and agosto finding in MRI right knee was partial tear of medial gastrocnemius tendon. Discussed this with Orthopedic surgery, Dr. Saldaña. Recommending rests and NSAIDs. If patient's wants, he can have a knee brace. Otherwise, patient follow up with orthopedic surgery outpatient Objective Physical Examination General Exam: Positive: Alert, Cooperative Eye Exam: Negative: Sclera icteric Neck Exam: Positive: Supple Neuro Exam: Negative: Normal Gait (limp) Psych Exam: Positive: Mental status NL, Mood NL Assessment /Plan Plan/VTE VTE Prophylaxis Ordered?: Yes (ambulation) Plan 1. Left knee tear of posterior horn medial meniscus -Discussed with orthopedic surgery -This is more from wear and tear -No intervention needed at this time 2. Right knee partial tear of medial gastrocnemius tendon -Discussed with orthopedic surgery -Recommending rest and NSAIDs -Can use knee brace Follow up with orthopedic surgery outpatient. VS, I&O, 24H, Fishbone Vital Signs/I&O Vital Signs Date Time Temp Pulse Resp B/P (MAP) Pulse Ox O2 Delivery O2 Flow Rate FiO2 01/02/21 16:55 98.5 91 20 141/75 (97) 98 01/02/21 05:48 Room Air JACY JUAREZ DO Jan 02, 2021 18:59
[2021-01-02] MEDS: traZODone 50 MG TAB PO PRN (20:38)
[2021-01-02] MEDS: MIRTAZAPINE 7.5MG PER 1/2 TABLET PO SCH (20:38)
[2021-01-03 06:00] VITALS: BP 144/75
[2021-01-03] MEDS: IBUPROFEN 600MG TAB PO PRN ×3 (06:35→20:08)
[2021-01-03] MEDS: MULTIVITAMINS/MINERALS THERAP 1 TAB PO SCH (08:18)
[2021-01-03] MEDS: NICOTINE 21MG/24HR 1 EA TRANSDERMAL TD SCH (08:18)
[2021-01-03] MEDS: FOLIC ACID 1 MG TAB PO SCH (08:18)
[2021-01-03 16:35] VITALS: BP 150/80
[2021-01-03] MEDS: hydrOXYzine 50 MG TAB PO PRN (20:08)
[2021-01-03] MEDS: traZODone 50 MG TAB PO PRN (20:08)
[2021-01-03] MEDS: MIRTAZAPINE 7.5MG PER 1/2 TABLET PO SCH (20:08)
[2021-01-04 06:23] VITALS: BP 159/80
[2021-01-04] MEDS: MULTIVITAMINS/MINERALS THERAP 1 TAB PO SCH (08:21)
[2021-01-04] MEDS: FOLIC ACID 1 MG TAB PO SCH (08:21)
[2021-01-04] MEDS: IBUPROFEN 600MG TAB PO PRN ×3 (08:22→20:46)
[2021-01-04] MEDS: NICOTINE 21MG/24HR 1 EA TRANSDERMAL TD SCH (09:00)
[2021-01-04 17:35] VITALS: BP 153/78
[2021-01-04] MEDS: MIRTAZAPINE 7.5MG PER 1/2 TABLET PO SCH (20:44)
[2021-01-04] MEDS: hydrOXYzine 50 MG TAB PO PRN (20:44)
[2021-01-05 06:40] VITALS: BP 136/75
[2021-01-05] MEDS: IBUPROFEN 600MG TAB PO PRN (06:59)
[2021-01-05] MEDS: NICOTINE 21MG/24HR 1 EA TRANSDERMAL TD SCH (09:00)
[2021-01-05] MEDS: FOLIC ACID 1 MG TAB PO SCH (09:14)
[2021-01-05] MEDS: MULTIVITAMINS/MINERALS THERAP 1 TAB PO SCH (09:14)
--- NOTE | 2021-01-05 13:48 | MHDSPDOC ---
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 Alcohol Use Disorder Alcohol-induced depressive disorder Alcohol Intoxication Cannabis Use Disorder REASON FOR ADMISSION: Patient is a 50 year old Single, Unemployed, Undomiciled, Male who reports that he had suicidal thinking after his nephew and him were arguing and his nephew threw him out of the house where he had been residing x 3 years. "I had problems with my neighbors. We got argument about change being off the door. They called the police and he was sitting in the ER for 12 hours and last to walking barefoot after he was discharged was not allowed to get things nowhere to go, no money, and I was thinking about jumping off a bridge". Patient reports a long history of legal problems, is sex offender , was in correction for 3 years. Reports that his stepdaughter accused him of sex offense, has been living off and on with family members for many years because he is unable to obtain a job due to his sexual offense status. "This is the fourth time everything has been taken away from me" PER ED REPORT: Pt was brought to the ED by [facility] on a 9.41 after pt. wandered [place] [employer] stating he was suicidal with plan to jump off a bridge or jump in front of a bus. Pt was recently discharged from ED a few hours ago and stated he lied to social science manager in attempt to be discharged. Pt states, "I was walking around [place] with no shoes and I realized I've never been this low in my entire life." States he was seen in the ED and evaluated a few hours ago, but was not truthful to the social science manager. Please refer to [facility] from previous visit, but now states he is homeless and is not willing to stay in a [facility] hotel. He admits he walked into the [employer] and expressed SI with plan to jump off a bridge or jump in front of a bus. States he's had 2 previous suicide attempts in the past by OD by pills in 2003 and 2009 while he was living in [place]. VITAL SIGNS: See below. CONSULTANTS INVOLVED: See Medical H + P by Hospitalist TREATMENT AND PROGRESS ON THE UNIT: Patient was admitted to the [facility] on a 9.39 legal status he was afforded the following treatment modalities: 1) Individual Therapy 2) Group Therapy 3) Medication Management 4) Milieu Therapy 5) Safe Environment HOSPITAL COURSE: Patient was admitted to [facility] on a . He had initially requested to be discharged on Tuesday of last week but was not discharged due to all Federal offices being closed. Patient had reported suicidality after getting into an argument with his nephew and nephews then restraining order was placed. Patient was started on Mirtazapine and Hydroxyzine per his request. He had reported being on this regimen and that he was very stable until he returned to the area. He spent most of his time in the room reading - this may be due to his sexual offense charge, he had been in correction for several years. He feels that he is stable and hopeful for emergency housing at [facility]. DISCHARGE ASSESSMENT: In today's interview, patient is alert and oriented, pts dress is appropriate. Hygiene and grooming is well-kempt. Smiles on approach and is pleasant and engaged in the interview. Denies depression and anxiety. Denies suicidal and homicidal ideation, planning or intent. Denies and is not observed with christian, psychotic symptoms of delusions, bizarre thinking, obsessions, paranoia, ruminations illogical thoughts, flight of ideas or having poor insight and judgement. Patient has normal mentation, declines further hospitalization on a voluntary status and meets criteria for discharge today. P atient encouraged to return to hospital if symptoms worsen or change and encouraged to call unit if he/she/they needs to speak to provider for questions regarding medications or care. MENTAL STATUS EXAMINATION ON DISCHARGE: Patient is a 50 year old Single, Unemployed, Undomiciled, Male who reports that he had suicidal thinking after his nephew and him were arguing and his nephew threw him out of the house where he had been residing x 3 years. Speech: Is fluid, conversant, normal rate, tone and volume Language skills are intact Thought processes including: linear and goal oriented Thought content: denies depression and anxiety. Denies suicidal/homicidal ideation, planning or intent. Abstract reasoning, and computation: fair Description of associations: denies, none observed Description of abnormal or psychotic thoughts: denies, none observed. Judgment: fair Insight: fair Orientation: alert and oriented to person, place, time and situation Recent and remote memory: intact Attention span and concentration: good Language: expansive Fund of knowledge: average Mood: Euthymic Mood Affect: reactive MEDICATIONS ON DISCHARGE: See Medication Reconciliation PLAN/FOLLOWUP ARRANGEMENTS: See associate media planner's notes The amount of time spent in the coordination of care for this patient was approximately 25 minutes. ETOH/Disorder Med Rx ETOH/DRUG DISORDER RX: Offrd @ d/c & pt refused Vital Signs/I&Os Vital Signs Date Time Temp Pulse Resp B/P (MAP) Pulse Ox O2 Delivery O2 Flow Rate FiO2 01/05/21 06:40 97.3 81 18 136/75 (95) 97 Room Air Medications Scheduled Ibuprofen (Ibuprofen) 200 Mg Capsule, 200 MG PO Q8H for pain, #20 Mirtazapine (Remeron) 15 Mg Tablet, 7.5 MG PO QHS for Sleep, #7 Multivitamin,Therapeutic (Thera-Tabs) 1 Each Tablet, 1 TAB PO DAILY, (Reported) Nicotine (Nicotine Patch) 21 Mg Patch.td24, 1 PATCH TD DAILY for Nicotine Withdrawal, #7 Scheduled PRN Hydroxyzine HCl (Hydroxyzine HCl) 50 Mg Tablet, 50 MG PO BIDP PRN for ANXIETY, #14 Allergies Coded Allergies: No Known Allergies (Unverified , 12/26/19) EVELYN KONG NP Jan 05, 2021 13:48
== END 2021-01-05 10:03 | disposition home or self-care (01) | DRG 755 ==
LOC: M ED 18:47 → M ED INP 12-29 11:20 → M PSY 12-29 13:23
PROVIDERS: ADMIT Psychiatry & Neurology Psychiatry; ATTEND Psychiatry & Neurology Psychiatry
DX: F43.25 Adjustment disorder with mixed disturbance of emotions and conduct (principal); R45.851 Suicidal ideations; F10.14 Alcohol abuse with alcohol-induced mood disorder; F17.200 Nicotine dependence, unspecified, uncomplicated; Z59.0 Homelessness; Z56.0 Unemployment, unspecified; Z65.2 Problems related to release from prison; Z81.8 Family history of other mental and behavioral disorders; Z62.811 Personal history of psychological abuse in childhood; S86.111A Strain of other muscle(s) and tendon(s) of posterior muscle group at lower leg level, right leg, initial encounter; S83.242A Other tear of medial meniscus, current injury, left knee, initial encounter; R10.9 Unspecified abdominal pain; F10.129 Alcohol abuse with intoxication, unspecified; X58.XXXA Exposure to other specified factors, initial encounter; Y92.9 Unspecified place or not applicable; Z63.8 Other specified problems related to primary support group

== ENCOUNTER 2021-06-09 10:53 | Emergency (ER) | payer MEDICAID, OTHER ==
[~2021-06-09] VITALS: Ht 185.4 cm; Wt 98.2 kg
[~2021-06-09 10:53] MED LIST changes: +HYDR50TA70 PO; +MIRT-62 PO; +NICO21PAT TD; +THERTAB52 PO
[2021-06-09] MEDS ORDERED: GABA-1171 (11:13)
[2021-06-09] MEDS ORDERED: PRAZ1CAP (11:13)
[2021-06-09 13:48] LABS: RSV AMPLIFICATION NEGATIVE (NEGATIVE)
[2021-06-09 15:07] LABS: BASO % 0.4 % (0.0-1.0); EOS # 0.2 10^3/uL (0.0-0.5); EOS % 1.4 % (0.0-3.0); HEMATOCRIT 43.4 % (42.0-52.0); HEMOGLOBIN 14.5 g/dl (13.5-17.5); LYMPH # 3.5 10^3/uL (1.5-5.0); LYMPH % 32.5 % (24.0-44.0); MEAN CORPUSCULAR HGB CONC 33.4 g/dl (32.0-36.5); MEAN CORPUSCULAR VOLUME 92.7 fl (80.0-96.0); MONO # 0.6 10^3/uL (0.0-0.8); MONO % 5.7 % (2.0-8.0); NEUTROPHILS # 6.5 10^3/uL (1.5-8.5); NEUTROPHILS % 59.7 % (36.0-66.0); PLATELET COUNT, AUTOMATED 356 10^3/uL (150-450); RED BLOOD COUNT 4.68 10^6/uL (4.30-6.10); WHITE BLOOD COUNT 10.8 10^3/uL (4.0-10.0)
--- NOTE | 2021-06-09 15:29 | REP ---
INDICATION: cough, short of breath x 5 days. COMPARISON: 03/11/2020 the only prior FINDINGS: The superior mediastinal structures are midline. The cardiac silhouette is unremarkable in size, shape, and position. The diaphragmatic surfaces of the lungs are regular, and the costophrenic angles are clear. The pulmonary loredo are clear. The imaged osseous structures are intact. Superimposed over the midline lower neck at the level of C7 in the middle of the tracheal air density there is a round 5 mm sized possibly metallic radiodensity which is not seen on the lateral view as that portion of the patient was not included. Was not present on the prior chest radiograph. IMPRESSION: There is no acute cardiopulmonary disease. Midline lower neck radiodensity as described above of uncertain etiology. This should be evaluated clinically. <Electronically signed by Zain Vela > 06/09/21 [id number]
[2021-06-09 15:58] LABS: ALBUMIN 4.1 GM/DL (3.2-5.2); ALT/SGPT 20 U/L (12-78); BILIRUBIN,DIRECT < 0.1 MG/DL (0.0-0.2); BILIRUBIN,TOTAL 0.3 MG/DL (0.2-1.0); BLOOD UREA NITROGEN 12 MG/DL (7-18); CALCIUM LEVEL 9.9 MG/DL (8.5-10.1); CARBON DIOXIDE LEVEL 25 MEQ/L (21-32); CHLORIDE LEVEL 110 MEQ/L (98-107); CREATININE FOR GFR 0.82 MG/DL (0.70-1.30); GLOMERULAR FILTRATION RATE > 60.0 (>56); GLUCOSE, FASTING 94 MG/DL (70-100); LIPASE 99 U/L (73-393); POTASSIUM SERUM 4.6 MEQ/L (3.5-5.1); SODIUM LEVEL 140 MEQ/L (136-145); TOTAL PROTEIN 7.7 GM/DL (6.4-8.2)
[2021-06-09 16:22] VITALS: BP 132/80
== END 2021-06-09 16:23 | disposition home or self-care (01) ==
LOC: M ED 10:53
DX: R05.9 Cough, unspecified (principal); M79.10 Myalgia, unspecified site; R09.81 Nasal congestion; I10 Essential (primary) hypertension; Z79.899 Other long term (current) drug therapy; F17.210 Nicotine dependence, cigarettes, uncomplicated

== ENCOUNTER 2023-12-25 05:13 | Emergency (ER) | payer OTHER, SELFPAY ==
[~2023-12-25] VITALS: Ht 185.4 cm; Wt 100.0 kg
[~2023-12-25 05:13] MED LIST changes: +GABA-1171; -MIRT-62 PO; +MIRT-88 PO; +PRAZ1CAP
[2023-12-25 05:36] LABS: BASO % 0.4 % (0.0-1.0); EOS # 0.3 10^3/uL (0.0-0.5); EOS % 2.9 % (0.0-3.0); HEMOGLOBIN 13.8 g/dl (13.5-17.5); LYMPH # 3.1 10^3/uL (1.5-5.0); MEAN CORPUSCULAR HEMOGLOBIN 33.9 pg (27.0-33.0); MEAN CORPUSCULAR HGB CONC 34.5 g/dl (32.0-36.5); MEAN CORPUSCULAR VOLUME 98.3 fl (80.0-96.0); MONO # 0.9 10^3/uL (0.0-0.8); MONO % 8.5 % (2.0-8.0); NEUTROPHILS # 5.7 10^3/uL (1.5-8.5); PLATELET COUNT, AUTOMATED 313 10^3/uL (150-450); RED BLOOD COUNT 4.07 10^6/uL (4.30-6.10); WHITE BLOOD COUNT 10.1 10^3/uL (4.0-10.0)
[2023-12-25 06:07] LABS: LIPASE 38 U/L (12-53)
[2023-12-25 06:09] LABS: ALBUMIN 3.9 G/DL (3.2-5.2); ALKALINE PHOSPHATASE 89 U/L (46-116); ALT/SGPT 22 U/L (7.0-40); AST/SGOT 17 U/L (<34); BILIRUBIN,DIRECT < 0.1 MG/DL (<0.4); BILIRUBIN,TOTAL 0.3 MG/DL (0.3-1.2); TOTAL PROTEIN 6.7 G/DL (5.7-8.2)
[2023-12-25 06:11] LABS: CPK CREATINE PHOSPHOKINASE 273 U/L (46-171); MB/CK RELATIVE INDEX 1.09 (< OR =4)
[2023-12-25] MEDS ORDERED: ISOVUE-370 76% 100ML VIAL As Ordered ONE (06:42)
[2023-12-25] MEDS: SUCRALFATE 1 GM TAB PO ONE (06:44)
[2023-12-25] MEDS: PANTOPRAZOLE 40MG VIAL IV ONE (06:44)
[2023-12-25] MEDS: NS 1,000 ML IV ONE (06:44)
[2023-12-25] MEDS: MAALOX 30 ML SUSP *UDC PO ONE (06:52)
[2023-12-25 07:21] LABS: MB/CK RELATIVE INDEX 1.22 (< OR =4)
[2023-12-25] MEDS ORDERED: CARA1TAB6 PO (08:09)
[2023-12-25] MEDS ORDERED: OMEP40CA4 PO (08:09)
[2023-12-25 08:30] VITALS: BP 151/79
[2023-12-25 08:43] VITALS: TEMP 97.7; O2SAT 100
== END 2023-12-25 09:13 | disposition home or self-care (01) ==
LOC: M ED 05:13 → EDBD 05:13 → EDSEX 05:13 → M ED 09:13
DX: R07.9 Chest pain, unspecified (principal); R10.13 Epigastric pain; K20.90 Esophagitis, unspecified without bleeding; F17.210 Nicotine dependence, cigarettes, uncomplicated; R94.31 Abnormal electrocardiogram [ECG] [EKG]; Z88.0 Allergy status to penicillin; Z79.899 Other long term (current) drug therapy
CPT/HCPCS: 71045; 71275; 74177; 80047; 80076; 82550; 82553; 83690; 84484; 85025; 93005; 93041; 94760; 96361; 96374; 99285; C9113; Q9967